=== PATIENT | male | born 1990 | race Caucasian/White ===

== ENCOUNTER 2021-11-08 12:19 | Emergency (ER) | payer BC ==
[2021-11-08] MEDS ORDERED: ONDANSETRON 4 MG/2 ML VIAL IVP STA (12:23)
[2021-11-08] MEDS ORDERED: SODIUM CHLORIDE 0.9% 1,000 ML IV STA (12:23)
--- NOTE | 2021-11-08 12:26 | ED ---
General Adult HPI - General Stated complaint: N&V Time Seen by Provider: 11/08/21 12:23 Source: patient Mode of arrival: ambulatory Limitations: no limitations - History of Present Illness Initial comments: Dictation was produced using [employer] dictation software. please excuse any grammatical, word or spelling errors. Chief Complaint: 31-year-old male presents emergency department for dizziness History of Present Illness: 31-year-old male presents emergency department for dizziness. He reports that his felt well yesterday. This morning woke up feeling dizzy and nauseated. He was able to drive to work. As soon as he got to work couple hours ago he had some bouts of nonbilious not bloody emesis and diarrhea. Coworker went to check on him and states that he looked pale. Patient denies any obvious sick contacts. He was encouraged by his coworkers come to the emergency department. The ROS documented in this emergency department record has been reviewed and confirmed by me. Those systems with pertinent positive or negative responses have been documented in the HPI. All other systems are other negative and/or noncontributory. PHYSICAL EXAM: General Impression: Alert and oriented x3, not in acute distress, pale HEENT: Normocephalic atraumatic, extra-ocular movements intact, pupils equal and reactive to light bilaterally, dry mucous membranes Cardiovascular: Heart regular rate and rhythm Chest: Able to complete full sentences, no retractions, no tachypnea Abdomen: abdomen soft, non-tender, non-distended, no organomegaly Musculoskeletal: Pulses present and equal in all extremities, no peripheral edema Motor: no focal deficits noted Neurological: CN II-XII grossly intact, no focal motor or sensory deficits noted Skin: Intact with no visualized rashes Psych: Normal affect and mood ED course: 31-year-old male presents emergency department for dizziness, gastroenteritis symptoms and presyncope. Vital signs upon arrival are within acceptable limits. Patient is well-appearing. He does appear to be slightly pale at the bedside. Patient arrives via EMS. EKG interpretation: Ventricular rate 86, sinus rhythm,. 140, care is 102, QTc 43. No IN prolongation, no QTC prolongation, no ST or T-wave changes noted. No old EKG for comparison. Overall, this EKG is unremarkable Laboratory evaluation obtained. No leukocytosis. Mild lymphocytopenia of 0.6. Patient observed in emergency department for approximately 2 hours. He iss reevaluated after some doses of antiemetics with improvement at 220p. Patient feels better. agreable for discharge. Return precautions discussed. Patient given starter packs for antiemetics and antidiarrheal. - Related Data Home Medications Medication Instructions Recorded Confirmed Dextroamphetamine/Amphetamine 20 mg PO DAILY 11/08/21 11/08/21 [Adderall] Allergies Allergy/AdvReac Type Severity Reaction Status Date / Time No Known Allergies Allergy Verified 11/08/21 13:30 Review of Systems ROS Statement: Those systems with pertinent positive or pertinent negative responses have been documented in the HPI. ROS Other: All systems not noted in ROS Statement are negative. Past Medical History Past Medical History: No Reported History Past Surgical History: No Surgical Hx Reported Past Psychological History: No Psychological Hx Reported Smoking Status: Never smoker Past Alcohol Use History: Occasional Past Drug Use History: None Reported General Exam Limitations: no limitations Course Vital Signs 11/08/21 12:21 Temperature 98.7 F Pulse Rate 80 Respiratory 20 Rate Blood Pressure 129/82 O2 Sat by Pulse 100 Oximetry Medical Decision Making - Lab Data Result diagrams: 11/08/21 12:38 11/08/21 12:38 Lab Results 11/08/21 11/08/21 11/08/21 Range/Units 12:38 12:38 12:41 WBC 8.6 (3.8-10.6) k/uL RBC 5.58 (4.30-5.90) m/uL Hgb 17.0 (13.0-17.5) gm/dL Hct 50.0 (39.0-53.0) % MCV 89.6 (80.0-100.0) fL MCH 30.4 (25.0-35.0) pg MCHC 33.9 (31.0-37.0) g/dL RDW 12.2 (11.5-15.5) % Plt Count 200 (150-450) k/uL MPV 8.0 Neutrophils % 86 % Lymphocytes % 7 % Monocytes % 5 % Eosinophils % 1 % Basophils % 0 % Neutrophils # 7.4 (1.3-7.7) k/uL Lymphocytes # 0.6 L (1.0-4.8) k/uL Monocytes # 0.4 (0-1.0) k/uL Eosinophils # 0.1 (0-0.7) k/uL Basophils # 0.0 (0-0.2) k/uL Sodium 140 (137-145) mmol/L Potassium 4.1 (3.5-5.1) mmol/L Chloride 106 (98-107) mmol/L Carbon Dioxide 24 (22-30) mmol/L Anion Gap 10 mmol/L BUN 16 (9-20) mg/dL Creatinine 0.97 (0.66-1.25) mg/dL Est GFR (CKD-EPI)AfAm >90 (>60 ml/min/1.73 sqM) Est GFR (CKD-EPI)NonAf >90 (>60 ml/min/1.73 sqM) Glucose 96 (74-99) mg/dL POC Glucose (mg/dL) 69 L (75-99) mg/dL POC Glu Refuse Collector Supervisor ID Ann Potter Calcium 9.2 (8.4-10.2) mg/dL 11/08/21 Range/Units 13:43 WBC (3.8-10.6) k/uL RBC (4.30-5.90) m/uL Hgb (13.0-17.5) gm/dL Hct (39.0-53.0) % MCV (80.0-100.0) fL MCH (25.0-35.0) pg MCHC (31.0-37.0) g/dL RDW (11.5-15.5) % Plt Count (150-450) k/uL MPV Neutrophils % % Lymphocytes % % Monocytes % % Eosinophils % % Basophils % % Neutrophils # (1.3-7.7) k/uL Lymphocytes # (1.0-4.8) k/uL Monocytes # (0-1.0) k/uL Eosinophils # (0-0.7) k/uL Basophils # (0-0.2) k/uL Sodium (137-145) mmol/L Potassium (3.5-5.1) mmol/L Chloride (98-107) mmol/L Carbon Dioxide (22-30) mmol/L Anion Gap mmol/L BUN (9-20) mg/dL Creatinine (0.66-1.25) mg/dL Est GFR (CKD-EPI)AfAm (>60 ml/min/1.73 sqM) Est GFR (CKD-EPI)NonAf (>60 ml/min/1.73 sqM) Glucose (74-99) mg/dL POC Glucose (mg/dL) 136 H (75-99) mg/dL POC Glu Refuse Collector Supervisor ID Paris Newell Calcium (8.4-10.2) mg/dL Disposition Clinical Impression: Hypoglycemia Disposition: HOME SELF-CARE Condition: Fair Instructions (If sedation given, give patient instructions): Acute Nausea and Vomiting (ED), Acute Diarrhea (ED) Is patient prescribed a controlled substance at d/c from ED?: No Referrals: Nonstaff,Physician [REFERRING] - 1-2 days
[2021-11-08] MEDS ORDERED: DEXTROSE 50% SYRINGE 50 ML IVP STA (12:42)
[2021-11-08 12:43] LABS: Glucose,Whole Blood 69 mg/dL (75-99)
[2021-11-08 13:14] LABS: African American GFR (CKD) >90 (>60 ml/min/1.73 sqM); Anion Gap 10 mmol/L; Blood Urea Nitrogen 16 mg/dL (9-20); Calcium 9.2 mg/dL (8.4-10.2); Carbon Dioxide 24 mmol/L (22-30); Chloride 106 mmol/L (98-107); Glucose 96 mg/dL (74-99); Non-African American GFR(CKD) >90 (>60 ml/min/1.73 sqM); Potassium 4.1 mmol/L (3.5-5.1); Sodium 140 mmol/L (137-145)
[2021-11-08 13:30] LABS: Basophils % (A) 0 %; Eosinophils # (A) 0.1 k/uL (0-0.7); Eosinophils % (A) 1 %; Lymphocytes # (A) 0.6 k/uL (1.0-4.8); Lymphocytes % (A) 7 %; MCH 30.4 pg (25.0-35.0); MCHC 33.9 g/dL (31.0-37.0); MCV 89.6 fL (80.0-100.0); Monocytes # (A) 0.4 k/uL (0-1.0); Monocytes % (A) 5 %; Neutrophils # (A) 7.4 k/uL (1.3-7.7); Neutrophils % (A) 86 %; Platelet Count 200 k/uL (150-450); RBC 5.58 m/uL (4.30-5.90); RDW 12.2 % (11.5-15.5); WBC 8.6 k/uL (3.8-10.6)
[2021-11-08 13:46] LABS: Glucose,Whole Blood 136 mg/dL (75-99)
[2021-11-08] MEDS ORDERED: METOCLOPRAMIDE 5 MG/ML 2 ML VIAL IVP STA (13:46)
[2021-11-08] MEDS ORDERED: DIPHENOX-ATROP STARTER PACK 8 TAB BTL PO STA (13:46)
[2021-11-08] MEDS ORDERED: ONDANSETRON 4 MG ODT STARTER PACK 2 TAB BTL PO STA (13:46)
[2021-11-08 14:34] VITALS: BP 124/71; PULSE 78; RESP 16; TEMP 98.2
== END 2021-11-08 14:33 | disposition home or self-care (01) ==
LOC: EC 12:19
DX: E16.2 Hypoglycemia, unspecified (principal)
CPT/HCPCS: 36415; 93005; 80048; 85025; 99284; 96374; 96375 ×2; 96361; J2765; J2405; S0119